=== PATIENT | female | born 1995 | race Caucasian/White ===

== ENCOUNTER 2020-07-27 12:36 | Inpatient (IN) | payer MEDICAID, SELFPAY ==
[~2020-07-27] VITALS: Ht 164 cm; Wt 76.7 kg
[2020-07-27] MEDS ORDERED: DINOPROSTONE 10 MG SUPP VG ONE (13:30)
[2020-07-27] MEDS ORDERED: LR 1,000 ML IV SCH ×2 (13:30→19:45)
[2020-07-27] MEDS ORDERED: NALBUPHINE HCL 10 MG/ML AMP IVP PRN (13:30)
[2020-07-27] MEDS ORDERED: OXYTOCIN/0.9 % SODIUM CHLORIDE 1,000 ML IV SCH (13:30)
[2020-07-27 14:15] LABS: BASOPHILS % (AUTO) 0.4 % (0.0-2.0); EOSINOPHILS # (AUTO) 0.1 K/uL (0.0-0.4); EOSINOPHILS % (AUTO) 0.8 % (0.0-4.0); HEMATOCRIT 36.9 % (36-48); HEMOGLOBIN 12.3 g/dL (12.0-16.0); LYMPHOCYTES # (AUTO) 1.9 K/uL (1.0-5.5); MEAN CORPUSCULAR HEMOGLOBIN 30 pg (27-31); MEAN CORPUSCULAR HGB CONC 33 % (32-36); MEAN CORPUSCULAR VOLUME 91 fL (79.0-98.0); MONOCYTES # (AUTO) 0.5 K/uL (0.0-1.0); MONOCYTES % (AUTO) 6.9 % (1.7-9.3); NEUTROPHILS # (AUTO) 4.9 K/uL (1.8-7.7); NEUTROPHILS % (AUTO) 65.9 % (40.0-70.0); PLATELET COUNT (AUTO) 182 K/uL (130-430); RED BLOOD CELL COUNT(AUTO) 4.07 MIL/uL (4.2-6.2); WHITE BLOOD COUNT (AUTO) 7.5 K/uL (4.8-10.8)
[2020-07-27] MEDS ORDERED: MAGNESIUM SULFATE IN WATER 100 ML IV ONE ×2 (14:15→14:20)
[2020-07-27] MEDS ORDERED: hydrALAZINE HCL 20 MG/ML VIAL IVP ONE (14:15)
[2020-07-27] MEDS ORDERED: hydrALAZINE HCL 20 MG/ML VIAL ONE (14:20)
[2020-07-27] MEDS ORDERED: MAGNESIUM SULFATE IN WATER 500 ML IV ONE (14:20)
[2020-07-27 14:27] LABS: CALCIUM 8.4 mg/dL (8.4-11.0); CREATININE 0.99 mg/dL (0.55-1.30); POTASSIUM 4.4 mmol/L (3.5-5.1)
[2020-07-27 14:33] LABS: ALBUMIN 2.6 g/dL (3.4-4.8); TOTAL BILIRUBIN 0.4 mg/dL (0.0-1.0)
[2020-07-27 14:34] LABS: INR 0.9 (0.8-1.2); PROTHROMBIN TIME 9.4 SECS (9.5-12.5)
[2020-07-27] MEDS: MAGNESIUM SULFATE IN WATER 500 ML IV PRN (14:52)
[2020-07-27 15:00] LABS: BILIRUBIN,URINE NEGATIVE (NEGATIVE); BLOOD, URINE 1+ (NEGATIVE); CLARITY/URINE CLEAR (CLEAR); COLOR,URINE YELLOW (YELLOW); GLUCOSE,URINE NEGATIVE (NEGATIVE); KETONES,URINE NEGATIVE (NEGATIVE); LEUKOCYTE ESTERASE ,URINE NEGATIVE (NEGATIVE); NITRITE, URINE NEGATIVE (NEGATIVE); PROTEIN URINE 3+ (NEGATIVE); UROBILINOGEN,URINE 0.2 (0.2-1.0)
[2020-07-27 15:24] LABS: BACTERIA,URINE None Seen /HPF (None Seen); CALCIUM OXALATE CRYSTALS,UR None Seen /HPF (None Seen); CALCIUM PHOSPHATE CRYSTALS,UR None Seen /HPF (None Seen); TRICHOMONAS,URINE None Seen /HPF (None Seen); WBC,URINE NONE SEEN /HPF (0-3); YEAST,URINE None Seen /HPF (None Seen)
[2020-07-27] MEDS ORDERED: CEFAZOLIN 2 GM IVPB PREMIX 50 ML IV ONE ×2 (18:15→18:55)
[2020-07-27 18:41] VITALS: BP_SYST 137
[2020-07-27] MEDS ORDERED: DEXAMETHASONE SOD PHOSPHATE 4 MG/ML VIAL IVP ONE (19:02)
[2020-07-27] MEDS ORDERED: OXYTOCIN/0.9 % SODIUM CHLORIDE 20 UNITS/1,000 ML BAG IV ONE (19:02)
[2020-07-27] MEDS ORDERED: LR 500 ML IV.SOLN IV ONE (19:02)
[2020-07-27] MEDS ORDERED: MORPHINE SULFATE 10 MG/ML VIAL IVP ONE (19:02)
[2020-07-27] MEDS ORDERED: LR 1,000 ML IV.SOLN IV ONE (19:02)
[2020-07-27] MEDS ORDERED: MORPHINE SULFATE 10MG/10ML PF AMP EP ONE (19:02)
[2020-07-27] MEDS ORDERED: NS IRRIG SOLN 1000 ML IR ONE (19:02)
[2020-07-27] MEDS ORDERED: METOCLOPRAMIDE HCL 10 MG/2 ML VIAL IVP ONE (19:02)
[2020-07-27] MEDS ORDERED: BUPIVACAINE /PF 0.75% 10 ML VIAL INJ ONE (19:02)
[2020-07-27] MEDS ORDERED: ONDANSETRON HCL 4 MG/2 ML VIAL IVP ONE (19:02)
[2020-07-27] MEDS ORDERED: NALOXONE HCL 0.4 MG/ML AMP (NARCAN) IVP PRN ×4 (19:45)
[2020-07-27] MEDS ORDERED: MORPHINE SULFATE 10MG/10ML PF AMP SP SCH (19:45)
[2020-07-27] MEDS ORDERED: MORPHINE 4 MG INJ. 4 MG/ML VIAL IVP PRN ×2 (19:45)
[2020-07-27] MEDS ORDERED: HYDROmorphone 1 MG/ML INJ. CARTRIDGE IVP PRN (19:45)
[2020-07-27] MEDS ORDERED: MEPERIDINE HCL/PF 25 MG/ML DISP.SYRIN IVP PRN ×2 (19:45)
[2020-07-27] MEDS ORDERED: DIPHENHYDRAMINE INJ 50 MG/ML VIAL IVP PRN (19:45)
[2020-07-27] MEDS ORDERED: HYDROmorphone 2 MG/ML VIAL IVP PRN ×2 (19:45)
[2020-07-27] MEDS ORDERED: NALOXONE HCL 1 MG in NACL 0.9% 1,000 ML IV PRN ×4 (19:45)
[2020-07-27] MEDS ORDERED: DIPHENHYDRAMINE HCL 50 MG CAPSULE PO PRN (19:45)
[2020-07-27] MEDS ORDERED: ONDANSETRON HCL 4 MG/2 ML VIAL IVP PRN (19:45)
[2020-07-27] MEDS ORDERED: KETOROLAC TROMETHAMINE 60 MG/2 ML VIAL IM PRN (19:45)
[2020-07-27 19:54] VITALS: BP_SYST 120
[2020-07-27] MEDS ORDERED: KETOROLAC TROMETHAMINE 30 MG VIAL ONE ×2 (20:48→20:52)
[2020-07-27] MEDS ORDERED: HYDROmorphone 2 MG/ML VIAL ONE (20:56)
[2020-07-27] MEDS ORDERED: DIPHENHYDRAMINE INJ 50 MG/ML VIAL ONE (20:57)
[2020-07-28] MEDS: MAGNESIUM SULFATE IN WATER 500 ML IV PRN (01:02)
[2020-07-28] MEDS ORDERED: ANUSOL 1 EA SUPP.RECT (PREPARATION H) RC PRN (18:15)
[2020-07-28] MEDS ORDERED: LR 1,000 ML IV SCH (18:15)
[2020-07-28] MEDS ORDERED: BISACODYL 10 MG/SUPPOSITORY RC PRN (18:15)
[2020-07-28] MEDS ORDERED: SIMETHICONE 80 MG TAB.CHEW PO PRN (18:15)
[2020-07-28] MEDS ORDERED: LANOLIN 7 GM OINT. TP PRN (18:15)
[2020-07-28] MEDS ORDERED: DIPH-TET-PERTUS Vaccine 0.5 ML VIAL (ADACEL) I.M. PRN (18:15)
[2020-07-28] MEDS ORDERED: OXYTOCIN/0.9 % SODIUM CHLORIDE 1,000 ML IV ONE (18:15)
[2020-07-28] MEDS: IBUPROFEN 600 MG TABLET PO SCH (18:25)
[2020-07-28] MEDS ORDERED: SENNOSIDES/DOCUSATE SODIUM 1 TAB TABLET(SENOKOT-S) PO SCH (21:00)
[2020-07-28] MEDS ORDERED: TEMAZEPAM 15 MG CAPSULE PO PRN (21:00)
[2020-07-28] MEDS ORDERED: DOCUSATE SODIUM 100 MG CAPSULE PO SCH (21:00)
[2020-07-29] MEDS: IBUPROFEN 600 MG TABLET PO SCH ×3 (00:02→12:01)
[2020-07-29 08:54] LABS: BASOPHILS % (AUTO) 0.4 % (0.0-2.0); EOSINOPHILS # (AUTO) 0.1 K/uL (0.0-0.4); EOSINOPHILS % (AUTO) 0.5 % (0.0-4.0); HEMATOCRIT 34.1 % (36-48); HEMOGLOBIN 11.3 g/dL (12.0-16.0); LYMPHOCYTES # (AUTO) 2.5 K/uL (1.0-5.5); LYMPHOCYTES % (AUTO) 21.5 % (20.5-51.5); MEAN CORPUSCULAR HEMOGLOBIN 30 pg (27-31); MEAN CORPUSCULAR HGB CONC 33 % (32-36); MEAN CORPUSCULAR VOLUME 92 fL (79.0-98.0); MONOCYTES # (AUTO) 0.9 K/uL (0.0-1.0); MONOCYTES % (AUTO) 7.3 % (1.7-9.3); NEUTROPHILS # (AUTO) 8.3 K/uL (1.8-7.7); NEUTROPHILS % (AUTO) 70.3 % (40.0-70.0); PLATELET COUNT (AUTO) 164 K/uL (130-430); RED BLOOD CELL COUNT(AUTO) 3.71 MIL/uL (4.2-6.2); RED CELL DISTRIBUTION WIDTH 14.3 % (9.0-15.0); WHITE BLOOD COUNT (AUTO) 11.8 K/uL (4.8-10.8)
== END 2020-07-29 14:00 | disposition home or self-care (01) | DRG 540 ==
LOC: SPU 12:36 → OBSVTOIN 12:36
PROVIDERS: ADMIT Obstetrics & Gynecology; ATTEND Obstetrics & Gynecology
PROC: 10D00Z1 Extraction of Products of Conception, Low, Open Approach (ICD-10-PCS; principal; 2020-07-27 19:00)
DX: O14.94 Unspecified pre-eclampsia, complicating childbirth (principal); O13.4 Gestational [pregnancy-induced] hypertension without significant proteinuria, complicating childbirth; O48.0 Post-term pregnancy; Z20.822 Contact with and (suspected) exposure to COVID-19; Z37.0 Single live birth; Z3A.40 40 weeks gestation of pregnancy
CPT/HCPCS: 36415; 80053; 81000; 85025; 85610-TC; 85730-TC; 86592; 86886; 86900; 86901; J0360; J0690; J1100; J1170; J1200; J1885; J2270; J2274; J2300; J2310; J2405; J2590; J2765; J3475; J3490; J7030; J7120